=== PATIENT | male | born 1935 | race Caucasian/White ===

== ENCOUNTER 2022-10-07 18:16 | Emergency (ER) | payer MEDICARE ==
[~2022-10-07] VITALS: Ht 182.9 cm; Wt 90.9 kg
[~2022-10-07 18:16] MED LIST: ARICEPT10 MG PO; AYR SALINE MIST50 ML NS; CETAPHIL MOIST473 ML TOP; CLEOCIN HC150 MG/CAP PO; COZAAR 25MG25 MG/TAB PO; MOBIC15 MG PO; SYSTANE GEL EYE10 ML OP; TYLENOL 325MG325 MG PO; VITAMIND3 5000 PO; XALATAN EYE DROPS OU
[2022-10-07 18:27] VITALS: TEMP 98.5
[2022-10-07 20:43] LABS: BASO # 0.1 K/mm3 (0.0-0.2); BASO % 0.5 % (0.0-2.0); EOS % 0.1 % (0.0-4.0); GRAN # 9.2 K/mm3 (1.4-6.5); HEMATOCRIT 41.2 % (42.0-52.0); HEMOGLOBIN 13.7 g/dl (13.5-18.0); LYMPH # 0.7 K/mm3 (1.2-3.4); MEAN CELL VOLUME 101 fl (80.0-100.0); MEAN CORPUSCULAR HEMOGLOBIN 34 pg (27-31); MEAN CORPUSCULAR HGB CONC 33 g/dl (33.0-37.0); MONO # 0.5 K/mm3 (0.1-0.6); MONO % 5.1 % (1.7-9.3); PLATELET COUNT 242 K/mm3 (130-400); RED BLOOD COUNT 4.09 M/mm3 (4.20-5.60); REDCELL DISTRIBUTION WIDTH-CV 14.7 % (11.5-14.5)
[2022-10-07 20:45] LABS: INR 1.1 (0.8-3.0); PROTHROMBIN TIME 12.6 SECONDS (9.7-12.8)
[2022-10-07 20:55] LABS: BILIRUBIN,TOTAL 0.5 mg/dL (0.2-1.2); CALCIUM 9.9 mg/dL (8.4-10.2); CREATININE, serum 1.2 mg/dL (0.72-1.25); POTASSIUM 4.5 mmol/L (3.5-4.5); TOTAL PROTEIN 7.4 gm/dL (6.2-8.1)
[2022-10-07 21:48] VITALS: BP 135/74; PULSE 72
== END 2022-10-07 21:48 | disposition short-term general hospital (02) ==
LOC: COL.ER 18:16
PROVIDERS: Nurse Practitioner
DX: S06.6XAA Traumatic subarachnoid hemorrhage with loss of consciousness status unknown, initial encounter (principal); S06.5XAA Traumatic subdural hemorrhage with loss of consciousness status unknown, initial encounter; S40.212A Abrasion of left shoulder, initial encounter; S00.81XA Abrasion of other part of head, initial encounter; F03.90 Unspecified dementia, unspecified severity, without behavioral disturbance, psychotic disturbance, mood disturbance, and anxiety; W01.10XA Fall on same level from slipping, tripping and stumbling with subsequent striking against unspecified object, initial encounter; Y93.01 Activity, walking, marching and hiking; Y92.89 Other specified places as the place of occurrence of the external cause
CPT/HCPCS: A4314; J0330; J1953; J2060; J2704; J3010; J7050